=== PATIENT | male | born 1965 | race African-American/Black ===

== ENCOUNTER 2020-05-08 09:52 | Emergency (ER) | payer SELFPAY ==
[2020-05-08 09:54] VITALS: BP 162/112; PULSE 68; RESP 18; TEMP 36.5; O2SAT 98; BMI 35.4
--- NOTE | 2020-05-08 10:03 | W.ED.WEAKNES ---
HPI - Weakness General: Chief complaint: Weakness Stated complaint: NOT FEELING WELL Time Seen by Provider: 05/08/20 09:59 Source: patient Mode of arrival: ambulatory Limitations: no limitations History of Present Illness: HPI Narrative: 54-year-old male who is here from [facility]. Patient states he is been at [facility] for 3 days for detox off of heroin. He states he feels like he is withdrawn just feels dehydrated. He states he has felt weak and his blood pressure been running a little high. Denies any vomiting or diarrhea. He denies any pain anywhere. Denies any worsening or improving factors. Associated symptoms: Reports nausea; Denies chest pain, chills, dysuria, easy bruising, fever(s) or headache(s) Review of Systems Const: Denies: fever(s), chills, body aches or change in appetite Eyes: Denies: blurry vision or eye discomfort ENMT: Denies: throat pain or dental pain Card: Denies: chest pain Resp: Denies: dyspnea GI: Reports: nausea : Denies: dysuria Musc: Denies: neck pain or back pain Skin/Breast: Denies: rash Neuro: Denies: headache(s) Psych: Denies: depression Colin/Lymph: Denies: easy bruising All/Imm: Denies: urticaria Physical Exam Const: COMMON NORMALS: no acute distress, patient oriented x3 and healthy appearing HENMT: COMMON NORMALS: normocephalic and atraumatic HEAD & SCALP: normocephalic and atraumatic Eye: COMMON NORMALS: Equal, round and reactive pupils present and EOMs intact bilaterally PUPIL: Yes Equal, round and reactive pupils present Neck/C-Spine: COMMON NORMALS: full ROM and supple Chest: COMMONS NORMALS: normal inspection of the chest and normal palpation of entire chest wall Resp: COMMON NORMALS: normal respiratory effort, No retractions, No use of accessory muscles and clear to auscultation bilaterally AUSCULTATION: clear to auscultation bilaterally Cardio: COMMON NORMALS: regular rate, regular rhythm and No murmurs present (Cardio) RATE: regular rate RHYTHM: regular rhythm GI: COMMON NORMALS: Normal to inspection, nondistended, normoactive bowel sounds present, Soft to palpation, non-tender and no masses PALPATION: Yes Soft to palpation Extremity: COMMON NORMALS: normal to inspection and full ROM Neuro: COMMON NORMALS: patient oriented x3, moves all extremities and no focal motor deficits Psych: COMMON NORMALS: mental status grossly normal, Normal thought process present and cooperative THOUGHT PROCESS: Normal thought process present Skin: COMMON NORMALS: no rashes or lesions noted and no wounds GENERAL SKIN EXAM: no rashes or lesions noted Course Vital Signs: Vital signs: Vital Signs Temperature 97.7 F 05/08/20 09:54 Pulse Rate 68 05/08/20 09:54 Respiratory Rate 18 05/08/20 09:54 Blood Pressure 145/80 05/08/20 12:26 Pulse Oximetry 98 05/08/20 09:54 MDM - Weakness MDM Narrative: Medical decision making narrative: Patient presents with not feeling well likely from mild opioid withdrawal. He is well-appearing here and has no signs of major withdrawals. Patient's lab work here is normal I spoke to patient and will discharge him back to [facility]. He is return if worsening. He understands agrees to plan. Lab Data: Labs: Lab Results 05/08/20 05/08/20 Range/Units 10:21 10:21 WBC 5.3 (4.0-10.0) 10^3/ uL RBC 5.80 H (4.1-5.3) 10^6/u L Hgb 15.5 (11.7-16.6) g/dL Hct 49.2 (42.0-52.0) % MCV 84.8 (80-94) fL MCH 26.7 L (28.0-34.0) pg MCHC 31.5 (30.0-36.0) g/dL RDW 13.2 (12.1-15.1) % Plt Count 301 (130-400) 10^3/c mm MPV 9.0 (7.4-10.4) fL Neut % (Auto) 64.4 % Lymph % (Auto) 26.3 % Riley % (Auto) 7.4 % Eos % (Auto) 1.3 % Baso % (Auto) 0.4 % Neut # (Auto) 3.38 (1.8-7.7) 10^3/u L Lymph # (Auto) 1.4 (0.8-4.8) 10^3/u L Riley # (Auto) 0.4 (0.2-0.9) 10^3/u L Eos # (Auto) 0.1 (0.0-0.8) 10^3/u L Baso # (Auto) 0.0 (0.0-0.1) 10^3/u L Nucleated RBC % (a uto) 0 % Nucleated RBCs # 0.0 /100WBC Sodium 137 (136-145) mmol/L Potassium 4.0 (3.5-5.1) mmol/L Chloride 100 (98-107) mmol/L Carbon Dioxide 25 (22-29) mmol/L Anion Gap 16.0 (5-19) BUN 11 (6-20) mg/dL Creatinine 0.8 (0.7-1.2) mg/dL GFR Calculation 122.8 (90-130) mL/min Glucose 150 H (65-115) mg/dL Calculated Osmolal ity 286 (285-295) mOsm/k g Calcium 9.8 (8.5-10.5) mg/dL Total Bilirubin 0.3 (0.15-1.2) mg/dL AST 18 (0-40) U/L ALT 14 (0-41) U/L Alkaline Phosphata se 80 (40-130) IU/L Total Protein 8.0 (6.6-8.7) g/dL Albumin 3.9 (3.5-5.2) g/dL Globulin 4.1 (1.3-4.6) g/dL Discharge Plan Discharge Patient Disposition: Home Clinical Impression: Withdrawal syndrome Qualifiers: Substance type: opioid Qualified Code(s): F11.23 - Opioid dependence with withdrawal Condition: Stable Prescriptions: No Action No Known Home Medications RF: 0 Discharge Orders: Discharge Order (Routine); Ordered 05/08/20 Ordered By: Joe Kitchen Discharge Diet: Advance as tolerated Discharge Activity: Resume usual activity Patient Instructions: Opioid Withdrawal (ED) Coding Level of Care Code ED [employer] Painter for [facility]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
[2020-05-08 10:30] VITALS: BP 156/91
[2020-05-08 10:35] LABS: Basophils % 0.4 %; Eosinophils # 0.1 10^3/uL (0.0-0.8); Eosinophils % 1.3 %; Hematocrit 49.2 % (42.0-52.0); Hemoglobin 15.5 g/dL (11.7-16.6); Lymphocytes # 1.4 10^3/uL (0.8-4.8); Lymphocytes % 26.3 %; Mean Corpuscular HGB Conc 31.5 g/dL (30.0-36.0); Mean Corpuscular Hemoglobin 26.7 pg (28.0-34.0); Mean Corpuscular Volume 84.8 fL (80-94); Monocytes # 0.4 10^3/uL (0.2-0.9); Monocytes % 7.4 %; Neutrophils # 3.38 10^3/uL (1.8-7.7); Neutrophils % 64.4 %; Nucleated Red Blood Cells % 0 %; Platelet Count 301 10^3/cmm (130-400); Red Cell Distribution Width 13.2 % (12.1-15.1); White Blood Count 5.3 10^3/uL (4.0-10.0)
[2020-05-08] MEDS: sodium chloride 0.9% 1,000 ML 999 ML IV (10:48)
[2020-05-08] MEDS: LORazepam 2 mg/mL INJ 1 mL 1 MG IVP ×2 (10:48→11:11)
[2020-05-08 10:56] LABS: Alanine Aminotransferase 14 U/L (0-41); Albumin Level 3.9 g/dL (3.5-5.2); Alkaline Phosphatase 80 IU/L (40-130); Aspartate Amino Transferase 18 U/L (0-40); Blood Urea Nitrogen 11 mg/dL (6-20); Calcium 9.8 mg/dL (8.5-10.5); Carbon Dioxide 25 mmol/L (22-29); Chloride 100 mmol/L (98-107); Globulin 4.1 g/dL (1.3-4.6); Glomerular Filtration Rate 122.8 mL/min (90-130); Glucose 150 mg/dL (65-115); Osmolality Calculated 286 mOsm/kg (285-295); Sodium 137 mmol/L (136-145); Total Bilirubin 0.3 mg/dL (0.15-1.2)
[2020-05-08 11:41] VITALS: BP 163/116
[2020-05-08] MEDS: cloNIDine 0.1 mg Tablet PO (11:41)
[2020-05-08 12:26] VITALS: BP 145/80
[2020-05-08 12:49] VITALS: BP 143/101; PULSE 87; RESP 16; O2SAT 98
== END 2020-05-08 12:50 | disposition home or self-care (01) ==
PROVIDERS: Emergency Provider Emergency Medicine
DX: F11.23 Opioid dependence with withdrawal (principal)
CPT/HCPCS: 12345; 80053; 85025; 96361; 96374; 96376; 99282; 99283; J2060; J7030

== ENCOUNTER 2020-05-22 19:22 | Outpatient (CLI) | payer SELFPAY ==
[2020-05-22 20:25] LABS: Alanine Aminotransferase 42 U/L (0-41); Alkaline Phosphatase 74 IU/L (40-130); Anion Gap 20.4 (5-19); Aspartate Amino Transferase 24 U/L (0-40); Blood Urea Nitrogen 13 mg/dL (6-20); Carbon Dioxide 24 mmol/L (22-29); Chloride 103 mmol/L (98-107); Estmated Average Glucose 163; Globulin 3.6 g/dL (1.3-4.6); Glomerular Filtration Rate 76.9 mL/min (90-130); Glucose 200 mg/dL (65-115); Hemoglobin A1C 7.3 % (4.0-6.0); Osmolality Calculated 302 mOsm/kg (285-295); Potassium 4.4 mmol/L (3.5-5.1); Sodium 143 mmol/L (136-145); Total Bilirubin 0.2 mg/dL (0.15-1.2); Total Protein 7.6 g/dL (6.6-8.7)
== END 2020-05-22 19:23 | disposition home or self-care (01) ==
LOC: LAB 19:24
PROVIDERS: PCP Family Medicine Adult Medicine; Visit Provider General Practice
DX: E11.9 Type 2 diabetes mellitus without complications (principal)
CPT/HCPCS: 80053; 83036

== ENCOUNTER → 2020-05-27 10:33 | Outpatient (BNVA) | payer SELFPAY | PROVIDERS: PCP Family Medicine Adult Medicine; Visit Provider Nurse Practitioner | DX: J02.9 Acute pharyngitis, unspecified (principal) | CPT/HCPCS: 87071; 87880 ==